=== PATIENT | male | born 1995 | race Caucasian/White ===

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

== ENCOUNTER 2018-05-08 23:41 | Emergency (ER) | payer OTHER ==
[2018-05-08 23:48] VITALS: BP 137/81
--- NOTE | 2018-05-09 00:46 | EDPHY ---
H & P Stated Complaint: DOG BITE TO FACE Time Seen by Provider: 05/09/18 00:04 HPI/ROS: HPI The patient presents with dog bite to the face which occurred 3 days ago when he was drinking alcohol. He does not remember whose dog it was that bit him. He was at several house parties. He remembers going to the bathroom and seeing some bleeding from his left cheek and then washing the wound with soap and water. He has been doing some research on rabies in the last few days and is very concerned that he may have contracted this. He has no symptoms. REVIEW OF SYSTEMS 10 systems were reviewed and negative with the exception of the elements mentioned in the history of present illness. 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, alcohol use PHYSICAL General Appearance: Alert, no distress Eyes: Pupils equal and round no pallor or injection ENT, Mouth: Mucous membranes moist Respiratory: Breathing comfortably Neurological: A&O, moves all extremities Skin: Warm and dry, left cheek with 5 mm superficial abrasion with no surrounding erythema, warmth, edema Musculoskeletal: Neck is supple non tender Extremities: symmetrical, full range of motion Psychiatric: Patient is oriented X 3, there is no agitation Source: Patient Exam Limitations: No limitations - Personal History Current Tetanus Diphtheria and Acellular Pertussis (TDAP): Yes - Medical/Surgical History Hx Asthma: No Hx Chronic Respiratory Disease: No Hx Diabetes: No Hx Cardiac Disease: No Hx Renal Disease: No Hx Cirrhosis: No Hx Alcoholism: No Hx HIV/AIDS: No Hx Splenectomy or Spleen Trauma: No Other PMH: PSHx: denies. 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 He did have some bleeding from a left cheek wound. He was at several house parties in believes the dog belonged to someone at the house. He does not know exactly what dog this was and thus has not been able to check vaccination status. He is concerned about rabies exposure. I have explained that rabies in dogs within [facility] is exceptionally low. I do not recommend rabies vaccination. I will refer him to Infectious Disease as needed and have given him the phone number for [facility] as well as he needs further information on this. Departure - Departure Disposition: Home, Routine, Self-Care Clinical Impression: Dog bite of face Qualifiers: Encounter type: initial encounter Qualified Code(s): S01.85XA - Open bite of other part of head, initial encounter Condition: Good Instructions: Animal Bite (ED) Additional Instructions: I am not concerned that you have been exposed to rabies. I do not think you need a rabies vaccination. I have given you information for Dr. Carrion our local infectious disease doctor if you would like to make an appointment with him to be seen to discuss this further. Also, you can contact the [facility] Department of Public Health for more information. Their phone number is [phone]. Referrals: Dion Carrion MD [Medical Doctor] - As per Instructions
== END 2018-05-09 01:02 | disposition home or self-care (01) ==
DX: S01.85XA Open bite of other part of head, initial encounter (principal); F10.920 Alcohol use, unspecified with intoxication, uncomplicated; W54.0XXA Bitten by dog, initial encounter; Y92.018 Other place in single-family (private) house as the place of occurrence of the external cause